=== PATIENT | male | born 1985 | race Caucasian/White ===

== ENCOUNTER 2020-06-11 16:06 | Emergency (ER) | payer OTHER ==
[~2020-06-11] VITALS: Ht 188 cm; Wt 120.5 kg
--- NOTE | 2020-06-11 16:37 | PHYS DOC ---
Adult General Chief Complaint Chief Complaint: CHEST PAIN HPI HPI Patient is a male with history of hypertension, chronic back pain currently on methadone and oxycodone who presents to the ED today complaining of 8 out of 10 sharp substernal chest pain radiating to his mid back that began at 5 AM this mo rning. Patient states the pain woke him up. Patient states the pain has been constant since then. Denies anything specifically relieving the pain. Denies any nausea vomiting. He states he is titrating his home pain medicine with no relief. Patient reports cough productive in nature for couple days. He also states he has exacerbation of his chronic low back pain, he states is currently on methadone and oxycodone which she took and did not help with his pain.. Review of Systems Review of Systems Constitutional: Denies fever or chills [] Eyes: Denies change in visual acuity, redness, or eye pain [] HENT: Denies nasal congestion or sore throat [] Respiratory: Reports cough, denies shortness of breath [] Cardiovascular: Reports chest pain GI: Denies abdominal pain, nausea, vomiting, bloody stools or diarrhea [] : Denies dysuria or hematuria [] Musculoskeletal: Reports back pain Integument: Denies rash or skin lesions [] Neurologic: Denies headache, focal weakness or sensory changes [] All other systems were reviewed and found to be within normal limits, except as documented in this note. Allergies Allergies Allergies Coded Allergies Type Severity Reaction Last Updated Verified No Known Drug Allergies 06/11/20 No Physical Exam Physical Exam Constitutional: Well developed, well nourished, no acute distress, non-toxic appearance. [] HENT: Normocephalic, atraumatic, bilateral external ears normal, oropharynx moist, no oral exudates, nose normal. [] Eyes: PERRLA, EOMI, conjunctiva normal, no discharge. [] Neck: Normal range of motion, no tenderness, supple, no stridor. [] Cardiovascular:Heart rate regular rhythm, no murmur [] Lungs & Thorax: Bilateral breath sounds clear to auscultation [] Abdomen: Bowel sounds normal, soft, no tenderness, no masses, no pulsatile masses. [] Skin: Warm, dry, no erythema, no rash. [] Back: No tenderness, no CVA tenderness. [] Extremities: No tenderness, no cyanosis, no clubbing, ROM intact, no edema. [] Neurologic: Alert and oriented X 3, normal motor function, normal sensory function, no focal deficits noted. [] Psychologic: Affect normal, judgement normal, mood normal. [] EKG EKG [address] Bowen sinus rhythm heart rate 70, no STEMI [] Radiology/Procedures Radiology/Procedures []PROCEDURE: PORTABLE CHEST 1V PORTABLE CHEST 1V Clinical History: Reason: chest pain / Spl. Instructions: / History: Technique: AP view of the chest was obtained at 06/11/2020 4:00 PM. Comparison: None. Findings: The cardiomediastinal silhouette is normal. The pulmonary vasculature is normal. The lungs and pleural margins are clear. Impression: No evidence of an acute cardiopulmonary process. Electronically signed by: Jose Boateng III, MD (06/11/2020 4:49 PM) [facility] DICTATED AND SIGNED BY: JOSE BOATENG III, MD DATE: 06/11/201648 CC: LYNSEY SIERRA MD; [facility]; HAY NUÑEZ APRN ~ Heart Score HEART Score for Chest Pain: HEART Score for Chest Pain Response (Comments) Value History Slighlty/Non-Suspicious 0 ECG Normal 0 Age < 45 0 Risk Factors 1 or 2 Risk Factors 1 Troponin < Normal Limit 0 Total 1 Risk Factors: Risk Factors: DM, Current or recent (<one month) smoker, HTN, HLP, family history of CAD, obesity. Risk Scores: Risk Factors: DM, Current or recent (<one month) smoker, HTN, HLP, family history of CAD, obesity. Course & Med Decision Making Course & Med Decision Making Pertinent Labs and Imaging studies reviewed. (See chart for details) This is a 35-year-old male patient presented to the ED today complaining of chest pain that began this morning, he is also complaining of chronic low back pain, he is currently on methadone and oxycodone.. Also complaining of chronic back pain. EKG is negative. Labs are negative including a negative D-dimer. Chest x-ray is negative. Heart score is 1. He has good follow-up with his PCP. Recommended he follows up in the course of this week. He was also provided cardiology for follow-up. Dragon Disclaimer Dragon Disclaimer This electronic medical record was generated, in whole or in part, using a voice recognition dictation system. Departure Departure: Impression: Primary Impression: Chest pain Additional Impression: Chronic low back pain Disposition: 01 DC HOME SELF CARE/HOMELESS Condition: STABLE Referrals: LYNSEY SIERRA MD (PCP) Follow-up in the course of this week NICO VELAZQUEZ MD followup this week or next week Patient Instructions: Back Pain, Adult, Chest Pain (Nonspecific) Additional Instructions: You were seen for chest pain and back pain. Your cardiac work-up is negative. Please follow-up with your primary care doctor as well as the provided business and financial counsel. Continue taking the pain medicine at home. Come back to the Ed if symptoms worsen Problem Qualifiers Primary Impression: Chest pain Chest pain type: unspecified Qualified Codes: R07.9 - Chest pain, unspecified Additional Impression: Chronic low back pain Back pain laterality: bilateral Sciatica presence: without sciatica Qualified Codes: M54.5 - Low back pain; G89.29 - Other chronic pain HAY NUÑEZ APRN Jun 11, 2020 16:37
[2020-06-11] MEDS ORDERED: ASPIRIN 325 MG TABLET PO ONE (16:45)
[2020-06-11] MEDS ORDERED: HYDROmorphone PF 1 MG/ML DISP.SYRIN IVP ONE (16:45)
--- NOTE | 2020-06-11 16:52 | RAD ---
PORTABLE CHEST 1V Clinical History: Reason: chest pain / Spl. Instructions: / History: Technique: AP view of the chest was obtained at 06/11/2020 4:00 PM. Comparison: None. Findings: The cardiomediastinal silhouette is normal. The pulmonary vasculature is normal. The lungs and pleural margins are clear. Impression: No evidence of an acute cardiopulmonary process. Electronically signed by: Clemente Coker III, MD (06/11/2020 4:49 PM) [facility]
[2020-06-11 16:55] LABS: CALCIUM 9.4 mg/dL (8.5-10.1); GFR 84.1; POTASSIUM 3.3 mmol/L (3.5-5.1)
[2020-06-11 16:58] LABS: BASO # 0.1 x10^3/uL (0.0-0.2); BASO % 1 % (0-3); EOS # 0.1 x10^3/uL (0.0-0.7); EOS % 1 % (0-3); HEMATOCRIT 42.6 % (39.0-53.0); HEMOGLOBIN 14.2 g/dL (13.0-17.5); LYMPH # 2.3 x10^3/uL (1.0-4.8); LYMPH % 24 % (24-48); MEAN CORPUSCULAR HEMOGLOBIN 28 pg (25-35); MEAN CORPUSCULAR HGB CONC 33 g/dL (31-37); MEAN CORPUSCULAR VOLUME 83 fL (79-100); MONO # 0.6 x10^3/uL (0.0-1.1); MONO % 7 % (0-9); NEUT # 6.4 x10^3uL (1.8-7.7); NEUT % 68 % (31-73); PLATELET COUNT 252 x10^3/uL (140-400); RED BLOOD COUNT 5.14 x10^6/uL (4.30-5.70); RED CELL DISTRIBUTION WIDTH 13.6 % (11.5-14.5); WHITE BLOOD COUNT 9.4 x10^3/uL (4.0-11.0)
[2020-06-11 17:12] LABS: ALBUMIN 3.9 g/dL (3.4-5.0); ALBUMIN/GLOBULIN RATIO 1.1 (1.0-1.7); MAGNESIUM 1.9 mg/dL (1.8-2.4); TOTAL BILIRUBIN 0.1 mg/dL (0.2-1.0); TOTAL PROTEIN 7.6 g/dL (6.4-8.2)
--- NOTE | 2020-06-11 17:23 | EKG ---
[address] [address] Test Date: 2020-06-11 Test Time: 16:18:37 Pat Name: MCKENNA SOLANO Department: Room: Gender: M Self Pay Collector: SUSAN : 1985 Requested By: HAY NUÑEZ Order Number: [id number] Reading MD: Measurements Intervals [place] Rate: 74 P: 28 UT: 174 QRS: 15 QRSD: 96 T: 12 QT: 372 QTc: 413 Interpretive Statements SINUS RHYTHM NORMAL ECG RI6.02 No previous ECG available for comparison
[2020-06-11 18:00] VITALS: BP 112/63
[2020-06-11] MEDS ORDERED: POTASSIUM CHLORIDE 20 MEQ TABLET.ER. PO ONE (18:00)
== END 2020-06-11 18:31 | disposition home or self-care (01) ==
LOC: ER 16:06
DX: R07.2 Precordial pain (principal); G89.29 Other chronic pain; M54.5 Low back pain; I10 Essential (primary) hypertension; Z79.891 Long term (current) use of opiate analgesic
CPT/HCPCS: 36415; 71045; 80053; 82553; 83690; 83735; 83880; 84443; 84484; 85025; 85379; 85610; 85730; 93005; 96374; 99285; J1170

== ENCOUNTER 2020-06-19 03:36 | Emergency (ER) | payer OTHER ==
[~2020-06-19] VITALS: Ht 188 cm; Wt 119.7 kg
--- NOTE | 2020-06-19 03:48 | PHYS DOC ---
Past History Past Medical History: Hypertension, Other Additional Past Medical Histor: chronic back pain Past Surgical History: Other Additional Past Surgical Histo: Lamectomy and right knee surgery (2005) Smoking: Non-smoker Alcohol Use: None Drug Use: None General Adult EDM: Chief Complaint: low back pain, body aches/congestion HPI: HPI: Patient is a 35 year old male who presents for evaluation of acute on chronic low back pain. Patient states he has a history of chronic back pain from an old injury. Patient [place]. Previously patient had seen a pain doctor and for the past 4 years and had been on me thadone 10mg 3 times a day. Patient was established with a family doctor here locally and was changed to oxycodone 15mg every [address] [place] Patient states that this is not adequately controlling his pain. Patient denies any loss of bowel bladder control currently, footdrop or saddle anesthesia. Patient denies any nausea or vomiting but is having body aches. 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 Patient has had an MRI less than 6 months ago of his back but those imaging studies are also [id number]. Patient denies any new fall, injury or trauma. Patient is a mild to moderate distress on arrival. Patient states his dropped him off for evaluation. Pt has a steady gait. Review of Systems: Review of Systems: Constitutional: Denies fever or chills Eyes: Denies change in visual acuity HENT: Denies nasal congestion or sore throat Respiratory: Denies cough or shortness of breath Cardiovascular: Denies chest pain or edema GI: Denies abdominal pain, nausea, vomiting, bloody stools or diarrhea : Denies dysuria Musculoskeletal: moderate back pain Integument: Denies rash Neurologic: Denies headache, focal weakness or sensory changes Endocrine: Denies polyuria or polydipsia Lymphatic: Denies swollen glands Psychiatric: Denies depression or anxiety Allergies: Allergies: Allergies Coded Allergies Type Severity Reaction Last Updated Verified No Known Drug Allergies 06/11/20 No Physical Exam: PE: Constitutional: Well developed, well nourished, mild to moderate acute distress, non-toxic appearance. [] HENT: Normocephalic, atraumatic, bilateral external ears normal, oropharynx moist, no oral exudates, nose normal. [] Eyes: PERRL, EOMI, conjunctiva normal, no discharge. [] Neck: Normal range of motion, no tenderness. [] Cardiovascular:Heart rate regular rhythm, no murmur [] Lungs & Thorax: Bilateral breath sounds clear to auscultation [] Abdomen: Bowel sounds normal, soft, no tenderness. [] Skin: Warm, dry, no erythema, no rash. [] Back: paraspinal tenderness, no CVA tenderness. [] Extremities: No tenderness, no cyanosis, ROM intact, no edema. [] Neurologic: Alert and oriented, normal motor function, normal sensory function, no focal deficits noted. [] Psychologic: Affect normal, judgement normal, mood abnormal/anxious. [] EKG: EKG: [] Radiology/Procedures: Radiology/Procedures: [] Heart Score: Risk Factors: Risk Factors: DM, Current or recent (<one month) smoker, HTN, HLP, family history of CAD, obesity. Risk Scores: Score 0 - 3: 2.5% MACE over next 6 weeks - Discharge Home Score 4 - 6: 20.3% MACE over next 6 weeks - Admit for Clinical Observation Score 7 - 10: 72.7% MACE over next 6 weeks - Early Invasive Strategies Course & Med Decision Making: Course & Med Decision Making Pertinent Labs and Imaging studies reviewed. (See chart for details) [] Dragon Disclaimer: Dragon Disclaimer: This electronic medical record was generated, in whole or in part, using a voice recognition dictation system. 0500 patient stable with a steady gait. Patient wishes to be discharged at this time. He does not want a wait for his urine results. Patient states that his back pain has been increasing he also has pain down his shoulder and into his neck. We had a lengthy discussion about chronic pain control and there was some concern patient may be in withdrawal. He had been on methadone for an extensive period of time high-dose. I advised him that we do not write for methadone in this emergency department. Patient dates he will see a chronic pa in doctor here locally soon as well as a back specialist. Patient given back pain instructions. Furthermore his Covid swab was obtained and results will be done within 48 hours. Patient is on oxycodone and Xanax at home for chronic pain. Departure Departure: Impression: Primary Impression: Chronic low back pain Qualified Codes: M54.5 - Low back pain; G89.29 - Other chronic pain Additional Impressions: URI (upper respiratory infection) Qualified Codes: J06.9 - Acute upper respiratory infection, unspecified Person under investigation for COVID-19 Disposition: 01 DC HOME SELF CARE/HOMELESS Condition: STABLE Referrals: LYNSEY SIERRA MD (PCP) Patient Instructions: Chronic Back Pain Additional Instructions: You have been tested for or diagnosed with COVID-19. It is an infection caused by a new type of coronavirus. COVID-19 will cause cold-like or mild flu symptoms in most. It can cause more severe symptoms like problems breathing in some. There is no treatment for COVID-19. The body will clear the infection over time. Self-care will help to ease discomfort. Steps to Take: Self-Care Rest as needed. Healthy habits may help you feel better. Steps include: Choose healthy foods including fruits and vegetables. Drink water throughout the day. Get plenty of sleep each night. If you smoke, try to quit. It may ease breathing. Avoid alcohol. Keep Others Healthy The virus can spread to others. Droplets are released every time you sneeze or cough. The droplets can get into the mouth, nose, or eyes of people near you and lead to infection. To lower the chances of spreading COVID-19 to others: Stay at home until your doctor has said it is safe to leave. If you tested positive this will mean staying isolated until both of the following are true: At least 7 days have passed since the start of illness. You are free of fever for at least 72 hours without the use of medicine. During this time: - Avoid public areas, events, or transportation. Do not return to work or school until your doctor has said it is safe to do so. - Call ahead if you need to go to a medical center. Let them know you may have COVID-19. It will help them guide you where to go. They may also ask you to wear a facemask when you come to the office. - If you call for emergency medical services, let them know you may have COVID- 19. While at home: - Try to avoid close contact with others. Stay about 6 feet away. - If possible, spend most of your time in a separate room from others. - Use a face mask if you will be in close contact with others such as sharing a room or vehicle. - Have someone wipe down common surfaces in the home. Use household zoology professor every day on areas like doorknobs, counters, or sinks. - Cough or sneeze into a tissue. Throw the tissue away right after use. If a tissue is not available, cough or sneeze into your elbow. - Wash your hands often. Wash them after sneezing or coughing. Use soap and water and wash for at least 20 seconds. Alcohol based hand block cleaner can be used if soap and water is not available. - Do not prepare food for others. Avoid sharing personal items like forks, spoons, or toothbrushes. - Avoid close contact with pets while you are sick. There is no evidence of the virus passing to pets. This is a safety step until more is known about this virus. Isolation can be frustrating. Social interaction can help. Keep in touch with friends and family through phone and tech options. You can still interact with others in your home, just keep a safe distance of about 6 feet. Follow-up: Your doctors office will check in with you to see if there are any changes in your health. You may be asked to keep track of symptoms to share with them. They will also let you know when you are clear to be in public again. Problems to Look Out For: Contact your doctor if your recovery is not going as you expect. Get emergency care if you have problems such as: - Trouble breathing - Nonstop chest pain or pressure - Changes in awareness, confusion, or problems waking - Lips or face have bluish color - Worsening of symptoms If you think you have an emergency, call for emergency medical services right away. As taken from [facility] HOMA BURGOS DO Jun 19, 2020 03:48
[2020-06-19] MEDS ORDERED: ORPHENADRINE CITRATE 60 MG/2 ML VIAL. IM ONE (04:30)
[2020-06-19] MEDS ORDERED: KETOROLAC 30 MG/ML VIAL. IM ONE (04:30)
[2020-06-19 04:57] LABS: BILIRUBIN,URINE NEG (NEG); CLARITY,URINE CLEAR; COLOR,URINE YELLOW; GLUCOSE,URINE NEG (NEG); NITRITE,URINE NEG (NEG); UROBILINOGEN,URINE 0.2 mg/dL (0.2 mg/dL)
[2020-06-19 04:58] LABS: BACTERIA,URINE 0 /HPF (0-FEW); RBC,URINE 0 /HPF (0-2); WBC,URINE RARE /HPF (0-4)
[2020-06-19 05:05] VITALS: BP 141/86
--- NOTE | 2020-06-23 08:08 | NUR ---
IP: patient notified of COVID result.
== END 2020-06-19 05:05 | disposition home or self-care (01) ==
LOC: ER 03:36
DX: G89.29 Other chronic pain (principal); M54.5 Low back pain; Z20.828 Contact with and (suspected) exposure to other viral communicable diseases; J06.9 Acute upper respiratory infection, unspecified; I10 Essential (primary) hypertension; Z98.890 Other specified postprocedural states
CPT/HCPCS: 81001; 96372; 99284; C9803; J1885; J2360; U0003